=== PATIENT | male | born 1990 | race African-American/Black ===

== ENCOUNTER 2018-11-09 23:42 | Emergency (ER) | payer SELFPAY ==
[~2018-11-09] VITALS: Ht 172.7 cm; Wt 77.2 kg
[2018-11-10] MEDS ORDERED: IBUPROFEN 800MG TABLET PO ONE (00:15)
[2018-11-10] MEDS ORDERED: HYDROCODONE/ACETAMINOPHEN 5/325MG TABLET PO ONE (01:45)
[2018-11-10 03:00] VITALS: BP 139/79
== END 2018-11-10 03:00 | disposition home or self-care (01) ==
LOC: ER 23:42
DX: S82.831A Other fracture of upper and lower end of right fibula, initial encounter for closed fracture (principal); V00.131A Fall from skateboard, initial encounter; Y93.51 Activity, roller skating (inline) and skateboarding; Y92.89 Other specified places as the place of occurrence of the external cause
CPT/HCPCS: 29515; 73610; 99283